=== PATIENT | female | born 1965 | race Caucasian/White ===

== ENCOUNTER 2016-04-25 18:00 | Inpatient (IN) | payer OTHER ==
[~2016-04-25] VITALS: Ht 180.3 cm; Wt 85.0 kg
[~2016-04-25 18:00] MED LIST: FLOMAX0.4 MG PO; KEFLEX500 MG PO; OXAYDO5 MG PO; PERCOCET 5/31 TABLET PO; TORADOL10 MG PO; ZOFRAN ODT4 MG PO
[2016-04-25 19:25] LABS: ADD MIUA? YES; BILIRUBIN NEGATIVE; BLOOD SMALL; COLOR YELLOW ((YELLOW)); GLUCOSE (STRIP) NEGATIVE; KETONES 5; LEUKOCYTES SMALL; NITRITE NEGATIVE; PROTEIN (STRIP) NEGATIVE; SPECIFIC GRAVITY 1.013 (1.000-1.030); UROBILINOGEN 0.2 MG/DL (0.2-1.0)
[2016-04-25 19:32] LABS: BACTERIA 3+ /HPF; EPITHELIAL CELLS 2+ /HPF; HYALINE CASTS 0-5 /LPF; MUCUS TRACE /LPF; RED BLOOD CELLS 0-5 /HPF (0-5); UCUL ADDED? YES
[2016-04-25 19:33] LABS: HEMATOCRIT 42.2 % (36.0-46.0); MCH 32.2 PG (29.0-34.0); MCHC 33.9 G/DL (30.0-36.0); MEAN PLAT.VOLUME 9.2 uM^3 (9.5-12.4); PLATELET COUNT 264 K/uL (156-360); RBC DIS.WIDTH-CV 14.2 % (11.8-14.6); RBC DIS.WIDTH-SD 46.8 % (39-53); RED BLOOD COUNT 4.44 M/uL (3.80-5.20); WHITE BLOOD COUNT 8.2 K/uL (4.1-10.2)
[2016-04-25 19:43] LABS: CHLORIDE 102 mEq/L (99-109)
[2016-04-25 19:44] LABS: POTASSIUM 3.7 mEq/L (3.7-5.4); SODIUM 140 mEq/L (136-147)
[2016-04-25 19:46] LABS: GLUCOSE 88 mg/dL (70-99)
[2016-04-25 19:47] LABS: ANION GAP 10 MEQ/L (2-14)
[2016-04-25 19:48] LABS: TOTAL BILIRUBIN 0.7 mg/dL (0.0-1.0)
[2016-04-25 19:49] LABS: ALKALINE PHOSPHATASE 68 IU/L (3-129); GFR ESTIMATE (CALCULATED) > 59 mL/min/
[2016-04-25 19:51] LABS: UREA NITROGEN (BUN) 11 mg/dL (9-23)
[2016-04-25 19:53] LABS: LIPASE 15 U/L (1.0-51.0)
[2016-04-25 19:58] LABS: QUANTITATIVE HCG < 4.0 MIU/ML
[2016-04-25] MEDS ORDERED: EFFEXOR37.5 MG PO (23:06)
[2016-04-25] MEDS ORDERED: LAMICTAL100 MG PO (23:07)
[2016-04-25] MEDS ORDERED: BAYER ASPIRIN1 EACH PO (23:07)
[2016-04-26 13:10] VITALS: BP 136/72
[2016-04-26 14:46] VITALS: BP 116/67
[2016-04-26 21:02] VITALS: BP 108/65
[2016-04-27] VITALS (7 sets, daily range): BP systolic 117–152; BP diastolic 64–82
[2016-04-27 10:09] LABS: EOSINOPHIL (%) 2.7 % (0-5); EOSINOPHIL COUNT 0.2 K/uL (0-0.3); HEMATOCRIT 38.6 % (36.0-46.0); IMMATURE GRANULOCYTE (%) 0.1 % (0.0-0.7); LYMPHOCYTE COUNT 1.3 K/uL (1.0-2.8); MCH 32.2 PG (29.0-34.0); MCHC 32.9 G/DL (30.0-36.0); MEAN PLAT.VOLUME 9.8 uM^3 (9.5-12.4); MONOCYTE (%) 5.6 % (3-12); MONOCYTE COUNT 0.4 K/uL (0-0.8); NEUTROPHIL (%) 74.6 % (45-76); NEUTROPHIL COUNT 5.7 K/uL (1.8-6.4); PLATELET COUNT 258 K/uL (156-360); RBC DIS.WIDTH-CV 13.8 % (11.8-14.6); RBC DIS.WIDTH-SD 49.8 % (39-53); RED BLOOD COUNT 3.94 M/uL (3.80-5.20); WHITE BLOOD COUNT 7.7 K/uL (4.1-10.2)
[2016-04-27 10:41] LABS: ANION GAP 6 MEQ/L (2-14); CHLORIDE 106 MEQ/L (99-109); MAGNESIUM 1.8 mg/dl (1.3-2.7); POTASSIUM 4.3 MEQ/L (3.7-5.4); SAMPLE HEMOLYSIS CHECK 0; SAMPLE ICTERIC CHECK 0; SAMPLE LIPEMIA CHECK 0; SODIUM 142 MEQ/L (136-147); TOTAL BILIRUBIN 0.3 MG/DL (0.0-1.0)
[2016-04-27 10:47] LABS: ALKALINE PHOSPHATASE 44 IU/L (3-129); GFR ESTIMATE (CALCULATED) > 59 mL/min/; GLUCOSE 99 mg/dL (70-99); UREA NITROGEN (BUN) 8 mg/dL (9-23)
[2016-04-28 03:47] VITALS: BP 132/62
[2016-04-28 06:48] LABS: EOSINOPHIL (%) 4.5 % (0-5); EOSINOPHIL COUNT 0.3 K/uL (0-0.3); IMMATURE GRANULOCYTE (%) 0.2 % (0.0-0.7); LYMPHOCYTE COUNT 1.6 K/uL (1.0-2.8); MCH 30.9 PG (29.0-34.0); MCHC 31.5 G/DL (30.0-36.0); MONOCYTE (%) 9.7 % (3-12); MONOCYTE COUNT 0.6 K/uL (0-0.8); NEUTROPHIL (%) 60.1 % (45-76); NEUTROPHIL COUNT 3.9 K/uL (1.8-6.4); PLATELET COUNT 249 K/uL (156-360); RBC DIS.WIDTH-SD 50.6 % (39-53); RED BLOOD COUNT 3.98 M/uL (3.80-5.20); WHITE BLOOD COUNT 6.4 K/uL (4.1-10.2)
[2016-04-28 07:15] LABS: ANION GAP 5 MEQ/L (2-14); CHLORIDE 107 MEQ/L (99-109); GFR ESTIMATE (CALCULATED) > 59 mL/min/; GLUCOSE 104 mg/dL (70-99); SAMPLE HEMOLYSIS CHECK 0; SAMPLE ICTERIC CHECK 0; SAMPLE LIPEMIA CHECK 0; SODIUM 143 MEQ/L (136-147); UREA NITROGEN (BUN) 9 mg/dL (9-23)
[2016-04-28 07:58] VITALS: BP 146/72
[2016-04-28 16:26] VITALS: BP 134/74
[2016-04-28 19:15] VITALS: BP 137/70
[2016-04-28 23:08] VITALS: BP 137/84
[2016-04-29 03:11] VITALS: BP 125/75
[2016-04-29 07:35] VITALS: BP 139/63
[2016-04-29] MEDS ORDERED: METRONIDAZOLE500 MG PO (12:07)
[2016-04-29] MEDS ORDERED: DICYCLOMINE HCL10 MG PO (12:07)
[2016-04-29] MEDS ORDERED: CIPROFLOXACIN500 M1 PO (12:07)
[2016-04-29] MEDS ORDERED: PHENAZOPYRIDIN100 MG PO (12:07)
== END 2016-04-29 13:42 | disposition home or self-care (01) | DRG 694 ==
LOC: EME 18:00 → 2EAST 04-26 00:51 → EDOF 04-26 00:51 → 2EAST 04-26 11:38
PROVIDERS: Internal Medicine; Physician Assistant
DX: N20.2 Calculus of kidney with calculus of ureter (principal); K57.32 Diverticulitis of large intestine without perforation or abscess without bleeding; F17.210 Nicotine dependence, cigarettes, uncomplicated; F32.9 Major depressive disorder, single episode, unspecified; F41.9 Anxiety disorder, unspecified
CPT/HCPCS: 74177; 80048; 80048 91; 80053; 81003; 83605; 83690; 83735; 84702; 85025; 85027; 87040; 87086; 87493; 99281; 99285; C1876; J0744; J1170; J1644; J1885; J2250; J2270; J2405; J2765; J3010; J7030; S0030

== ENCOUNTER 2016-05-18 08:52 | Emergency (ER) | payer OTHER ==
[~2016-05-18] VITALS: Ht 180.3 cm; Wt 82.4 kg
[~2016-05-18 08:52] MED LIST changes: +BAYER ASPIRIN1 EACH PO; +CIPROFLOXACIN500 M1 PO; +DICYCLOMINE HCL10 MG PO; +EFFEXOR37.5 MG PO; +LAMICTAL100 MG PO; +METRONIDAZOLE500 MG PO; +PHENAZOPYRIDIN100 MG PO
[2016-05-18 09:34] LABS: ADD MIUA? YES; BILIRUBIN NEGATIVE; BLOOD NEGATIVE; COLOR AMBER ((YELLOW)); GLUCOSE (STRIP) NEGATIVE; KETONES NEGATIVE; LEUKOCYTES TRACE; NITRITE NEGATIVE; PROTEIN (STRIP) NEGATIVE; SPECIFIC GRAVITY 1.017 (1.000-1.030); UROBILINOGEN 0.2 MG/DL (0.2-1.0)
[2016-05-18 09:38] LABS: BASOPHIL COUNT 0.1 K/uL (0-0.1); EOSINOPHIL (%) 3.3 % (0-5); EOSINOPHIL COUNT 0.2 K/uL (0-0.3); HEMATOCRIT 46.8 % (36.0-46.0); IMMATURE GRANULOCYTE (%) 0.4 % (0.0-0.7); INSTRUMENT ABS NEUTROPHIL CT 3.5 K/uL; LYMPHOCYTE COUNT 1.1 K/uL (1.0-2.8); MCH 31.2 PG (29.0-34.0); MCHC 32.7 G/DL (30.0-36.0); MCV 95.3 FL (83-99); MEAN PLAT.VOLUME 9.2 uM^3 (9.5-12.4); MONOCYTE COUNT 0.6 K/uL (0-0.8); NEUTROPHIL (%) 64.2 % (45-76); NEUTROPHIL COUNT 3.5 K/uL (1.8-6.4); PLATELET COUNT 300 K/uL (156-360); RBC DIS.WIDTH-CV 14.3 % (11.8-14.6); RBC DIS.WIDTH-SD 50.1 % (39-53); WHITE BLOOD COUNT 5.5 K/uL (4.1-10.2)
[2016-05-18 09:46] LABS: BACTERIA RARE /HPF; EPITHELIAL CELLS 3+ /HPF; MUCUS TRACE /LPF; RED BLOOD CELLS 0-5 /HPF (0-5); UCUL ADDED? NO; WHITE BLOOD CELLS 0-5 /HPF (0-5)
[2016-05-18 09:53] LABS: RED BLOOD COUNT 4.91 M/uL (3.80-5.20)
[2016-05-18 09:57] LABS: CHLORIDE 105 mEq/L (99-109); POTASSIUM 4.2 mEq/L (3.7-5.4); SODIUM 142 mEq/L (136-147)
[2016-05-18 09:59] LABS: GLUCOSE 96 mg/dL (70-99)
[2016-05-18 10:00] LABS: ANION GAP 9 MEQ/L (2-14)
[2016-05-18 10:01] LABS: TOTAL BILIRUBIN 0.4 mg/dL (0.0-1.0)
[2016-05-18 10:03] LABS: ALKALINE PHOSPHATASE 43 IU/L (3-129); GFR ESTIMATE (CALCULATED) > 59 mL/min/
[2016-05-18 10:04] LABS: UREA NITROGEN (BUN) 10 mg/dL (9-23)
[2016-05-18 10:06] LABS: LIPASE 66 U/L (1.0-51.0)
[2016-05-18] MEDS ORDERED: CITRATE OF MAG296 ML PO (13:07)
[2016-05-18 13:41] VITALS: BP 173/114
== END 2016-05-18 13:32 | disposition home or self-care (01) ==
LOC: EME 08:52
PROVIDERS: Emergency Medicine
DX: R10.32 Left lower quadrant pain (principal); R10.9 Unspecified abdominal pain; K57.90 Diverticulosis of intestine, part unspecified, without perforation or abscess without bleeding; F17.200 Nicotine dependence, unspecified, uncomplicated; Z87.442 Personal history of urinary calculi; Z79.82 Long term (current) use of aspirin
CPT/HCPCS: 74176; 80053; 81003; 83690; 85025; 99281; 99285; J2270; J2405; J7030

== ENCOUNTER 2016-06-19 19:05 | Inpatient (IN) | payer OTHER ==
[~2016-06-19] VITALS: Ht 180.3 cm; Wt 84.0 kg
[~2016-06-19 19:05] MED LIST changes: +CITRATE OF MAG296 ML PO
[2016-06-19 19:46] LABS: HEMATOCRIT 43.4 % (36.0-46.0); MCHC 34.1 G/DL (30.0-36.0); MCV 93.7 FL (83-99); MEAN PLAT.VOLUME 9.1 uM^3 (9.5-12.4); PLATELET COUNT 259 K/uL (156-360); RBC DIS.WIDTH-CV 14.3 % (11.8-14.6); RBC DIS.WIDTH-SD 49.2 % (39-53); RED BLOOD COUNT 4.63 M/uL (3.80-5.20)
[2016-06-19 19:59] LABS: CHLORIDE 103 mEq/L (99-109); POTASSIUM 3.7 mEq/L (3.7-5.4); SODIUM 139 mEq/L (136-147)
[2016-06-19 20:02] LABS: GLUCOSE 102 mg/dL (70-99)
[2016-06-19 20:03] LABS: ANION GAP 8 MEQ/L (2-14); TOTAL BILIRUBIN 0.7 mg/dL (0.0-1.0)
[2016-06-19 20:05] LABS: ALKALINE PHOSPHATASE 49 IU/L (3-129); GFR ESTIMATE (CALCULATED) > 59 mL/min/
[2016-06-19 20:06] LABS: UREA NITROGEN (BUN) 11 mg/dL (9-23)
[2016-06-19 20:09] LABS: LIPASE 18 U/L (1.0-51.0)
[2016-06-19 20:16] LABS: QUANTITATIVE HCG < 4.0 MIU/ML
[2016-06-19 21:01] LABS: ADD MIUA? NO; BILIRUBIN NEGATIVE; BLOOD NEGATIVE; COLOR YELLOW ((YELLOW)); GLUCOSE (STRIP) NEGATIVE; KETONES NEGATIVE; LEUKOCYTES NEGATIVE; NITRITE NEGATIVE; PROTEIN (STRIP) NEGATIVE; SPECIFIC GRAVITY 1.028 (1.000-1.030); UCUL ADDED? NO; UROBILINOGEN 0.2 MG/DL (0.2-1.0)
[2016-06-19] MEDS ORDERED: PRINIVIL10 MG PO (22:58)
[2016-06-19] MEDS ORDERED: LAMICTAL200 MG PO (22:58)
[2016-06-19] MEDS ORDERED: MULTIVITAMIN PACK PO (23:00)
[2016-06-20 00:37] VITALS: BP 96/56
[2016-06-20 06:56] LABS: HEMATOCRIT 40.3 % (36.0-46.0); MCH 31.8 PG (29.0-34.0); MCHC 32.3 G/DL (30.0-36.0); MEAN PLAT.VOLUME 9.4 uM^3 (9.5-12.4); PLATELET COUNT 216 K/uL (156-360); RBC DIS.WIDTH-CV 14.6 % (11.8-14.6); RBC DIS.WIDTH-SD 53.1 % (39-53); RED BLOOD COUNT 4.09 M/uL (3.80-5.20)
[2016-06-20 07:11] LABS: PROTHROMBIN TIME 10.4 (9.2-11.2); PTT 27.1 (25-32)
[2016-06-20 07:17] LABS: MCV 98.5 FL (83-99); WHITE BLOOD COUNT 10.8 K/uL (4.1-10.2)
[2016-06-20 07:20] LABS: ANION GAP 8 MEQ/L (2-14); CHLORIDE 109 MEQ/L (99-109); GFR ESTIMATE (CALCULATED) > 59 mL/min/; GLUCOSE 97 mg/dL (70-99); POTASSIUM 4.3 MEQ/L (3.7-5.4); SAMPLE HEMOLYSIS CHECK 0; SAMPLE ICTERIC CHECK 0; SAMPLE LIPEMIA CHECK 0; SODIUM 142 MEQ/L (136-147); UREA NITROGEN (BUN) 9 mg/dL (9-23)
[2016-06-20 07:34] VITALS: BP 121/69
[2016-06-20 16:56] VITALS: BP 167/73
[2016-06-20 23:00] VITALS: BP 142/72
[2016-06-21 06:44] LABS: ANION GAP 9 MEQ/L (2-14); C-REACTIVE PROTEIN 57.2 MG/L (0-10); CHLORIDE 103 MEQ/L (99-109); GFR ESTIMATE (CALCULATED) > 59 mL/min/; GLUCOSE 87 mg/dL (70-99); POTASSIUM 3.6 MEQ/L (3.7-5.4); SAMPLE HEMOLYSIS CHECK 0; SAMPLE ICTERIC CHECK 0; SAMPLE LIPEMIA CHECK 0; SODIUM 141 MEQ/L (136-147); UREA NITROGEN (BUN) 6 mg/dL (9-23)
[2016-06-21 06:53] LABS: HEMATOCRIT 38.6 % (36.0-46.0); MCH 31.8 PG (29.0-34.0); MCHC 33.2 G/DL (30.0-36.0); MEAN PLAT.VOLUME 9.5 uM^3 (9.5-12.4); PLATELET COUNT 221 K/uL (156-360); RBC DIS.WIDTH-CV 13.5 % (11.8-14.6); RBC DIS.WIDTH-SD 48.8 % (39-53); RED BLOOD COUNT 4.02 M/uL (3.80-5.20); WHITE BLOOD COUNT 8.8 K/uL (4.1-10.2)
[2016-06-21 07:30] VITALS: BP 138/76
[2016-06-21 10:54] VITALS: BP 140/76
[2016-06-21 17:02] VITALS: BP 122/73
[2016-06-21 23:49] VITALS: BP 102/62
[2016-06-21 23:52] VITALS: BP 119/66
[2016-06-22 04:39] VITALS: BP 104/72
[2016-06-22 07:32] LABS: HEMATOCRIT 41.7 % (36.0-46.0); MCH 31.7 PG (29.0-34.0); MCHC 33.3 G/DL (30.0-36.0); MEAN PLAT.VOLUME 9.5 uM^3 (9.5-12.4); PLATELET COUNT 244 K/uL (156-360); RBC DIS.WIDTH-CV 13.4 % (11.8-14.6); RBC DIS.WIDTH-SD 46.9 % (39-53); RED BLOOD COUNT 4.39 M/uL (3.80-5.20)
[2016-06-22 07:35] LABS: WHITE BLOOD COUNT 5.7 K/uL (4.1-10.2)
[2016-06-22 08:13] LABS: ANION GAP 7 MEQ/L (2-14); C-REACTIVE PROTEIN 21.8 MG/L (0-10); CHLORIDE 103 MEQ/L (99-109); GFR ESTIMATE (CALCULATED) > 59 mL/min/; GLUCOSE 87 mg/dL (70-99); POTASSIUM 3.6 MEQ/L (3.7-5.4); SAMPLE HEMOLYSIS CHECK 0; SAMPLE ICTERIC CHECK 0; SAMPLE LIPEMIA CHECK 0; SODIUM 142 MEQ/L (136-147); UREA NITROGEN (BUN) 6 mg/dL (9-23)
[2016-06-22 08:26] VITALS: BP 122/79
== END 2016-06-22 19:37 | disposition home or self-care (01) | DRG 921 ==
LOC: EME → EDBD 19:05 → 5EAST 22:45 → EDOF 22:45 → 5EAST 06-20 00:16 → 4SOUTH 06-22 04:18
PROVIDERS: Internal Medicine Gastroenterology
DX: K91.71 Accidental puncture and laceration of a digestive system organ or structure during a digestive system procedure (principal); I10 Essential (primary) hypertension; Y83.8 Other surgical procedures as the cause of abnormal reaction of the patient, or of later complication, without mention of misadventure at the time of the procedure; K57.30 Diverticulosis of large intestine without perforation or abscess without bleeding; K59.00 Constipation, unspecified; Z87.442 Personal history of urinary calculi; F17.210 Nicotine dependence, cigarettes, uncomplicated; D72.829 Elevated white blood cell count, unspecified; R51 Headache; F41.9 Anxiety disorder, unspecified; R11.2 Nausea with vomiting, unspecified
CPT/HCPCS: 74020; 74177; 80048; 80053; 81003; 83690; 84702; 85027; 85610; 85730; 86140; 87040; 88305; 94799; 99281; 99285; C9113; J0780; J1170; J2270; J2405; J2543; J2765; J7030; J7042; J7050